=== PATIENT | female | born 1990 | race Caucasian/White ===

== ENCOUNTER 2018-01-23 12:53 | Inpatient (IN) | payer BC ==
[~2018-01-23] VITALS: Ht 172.7 cm; Wt 77.3 kg
[2018-01-23 15:09] LABS: BASO % 0.4 % (0.0-2.0); EOS # 0.1 (0.0-0.7); EOS % 1.5 % (0-4.0); GRAN # 5.5 (1.4-6.5); GRAN % 73.4 % (42.2-75.2); HEMATOCRIT 38.1 % (37.0-47.0); HEMOGLOBIN 12.8 g/dl (12.5-16.0); LYMPH # 1.1 (1.2-3.4); LYMPH % 14.5 % (20.0-51.0); MEAN CELL VOLUME 91 fl (80.0-100.0); MEAN CORPUSCULAR HEMOGLOBIN 31 pg (27.0-31.0); MEAN CORPUSCULAR HGB CONC 34 g/dl (33.0-37.0); MEAN PLATELET VOLUME 10.4 fl (7.4-10.4); MONO # 0.8 (0.1-0.6); MONO % 10.1 % (1.7-9.3); PLATELET COUNT 273 K/mm3 (130-400); RED BLOOD COUNT 4.17 M/mm3 (4.10-5.30); REDCELL DISTRIBUTION WIDTH-CV 11.9 % (11.5-14.5)
[2018-01-23 15:25] LABS: ALBUMIN 4.1 gm/dL (3.5-5.0); BILIRUBIN,TOTAL 0.6 mg/dL (0.0-1.0); CALCIUM 9.3 mg/dL (8.4-10.2); CREATININE, serum 0.64 mg/dL (0.52-1.25); POTASSIUM 3.8 mmol/L (3.4-5.0); TOTAL PROTEIN 6.9 gm/dL (6.4-8.2)
[2018-01-23 15:28] LABS: MUCOUS Present /lpf; PH 6 (5-8); SQUAMOUS EPITHELIAL 0-2 /hpf; URINE APPEARANCE Clear; URINE BACTERIA Rare /hpf; URINE BILIRUBIN Negative (NEGATIVE); URINE BLOOD 1+ (NEGATIVE); URINE COLOR Yellow; URINE GLUCOSE Negative (NEGATIVE); URINE KETONE 1+ (NEGATIVE); URINE LEUKOCYTE ESTERASE Negative (NEGATIVE); URINE NITRATE Negative (NEGATIVE); URINE PROTEIN(semi-quant) 1+ (NEGATIVE); URINE RBC 0-2 /hpf; URINE UROBILINOGEN Negative (NEGATIVE); URINE WBC 0-2 /hpf
[2018-01-23 16:06] LABS: ERYTHROCYTE SEDIMENTATION RATE 7 mm/hr (0-20)
[2018-01-23 16:17] LABS: COLLECTION METHOD CLEAN CATCH
[2018-01-23 18:19] LABS: PHOSPHOROUS 3.5 mg/dL (2.5-4.5); URIC ACID 5.8 mg/dL (2.5-6.2)
[2018-01-23 19:15] VITALS: BP 101/60; PULSE 72; TEMP 98
[2018-01-23 23:30] VITALS: BP 107/50; PULSE 72; TEMP 98
[2018-01-23 23:38] LABS: ALBUMIN 2.8 gm/dL (3.5-5.0); BILIRUBIN,TOTAL 0.2 mg/dL (0.0-1.0); CALCIUM 7.8 mg/dL (8.4-10.2); CREATININE, serum 0.53 mg/dL (0.52-1.25); POTASSIUM 3.5 mmol/L (3.4-5.0); TOTAL PROTEIN 5.1 gm/dL (6.4-8.2); URIC ACID 4.6 mg/dL (2.5-6.2)
[2018-01-24 02:52] VITALS: BP 110/49; PULSE 68; TEMP 97.5
[2018-01-24 06:55] VITALS: BP 106/49; PULSE 71; TEMP 97.5
[2018-01-24 07:27] LABS: COLLECTION METHOD CATHETER
[2018-01-24 07:32] LABS: HEMOGLOBIN 11.8 g/dl (12.5-16.0); MEAN CELL VOLUME 91 fl (80.0-100.0); MEAN CORPUSCULAR HEMOGLOBIN 31 pg (27.0-31.0); MEAN CORPUSCULAR HGB CONC 34 g/dl (33.0-37.0); PLATELET COUNT 197 K/mm3 (130-400); RED BLOOD COUNT 3.78 M/mm3 (4.10-5.30)
[2018-01-24 07:35] LABS: HEMATOCRIT 34.3 % (37.0-47.0); PH 7 (5-8); SQUAMOUS EPITHELIAL None Seen /hpf; URINE APPEARANCE Clear; URINE BACTERIA None Seen /hpf; URINE BILIRUBIN Negative (NEGATIVE); URINE BLOOD Negative (NEGATIVE); URINE COLOR Colorless; URINE GLUCOSE Negative (NEGATIVE); URINE KETONE Negative (NEGATIVE); URINE LEUKOCYTE ESTERASE Negative (NEGATIVE); URINE NITRATE Negative (NEGATIVE); URINE PROTEIN(semi-quant) Negative (NEGATIVE); URINE RBC 0-2 /hpf; URINE UROBILINOGEN Negative (NEGATIVE); URINE WBC 0-2 /hpf
[2018-01-24 07:41] LABS: ALBUMIN 2.8 gm/dL (3.5-5.0); BILIRUBIN,TOTAL 0.3 mg/dL (0.0-1.0); CALCIUM 7.9 mg/dL (8.4-10.2); CREATININE, serum 0.48 mg/dL (0.52-1.25); MAGNESIUM 1.9 mg/dL (1.6-2.3); POTASSIUM 4.2 mmol/L (3.4-5.0); TOTAL PROTEIN 5.2 gm/dL (6.4-8.2); URIC ACID 3.7 mg/dL (2.5-6.2)
[2018-01-24 08:03] LABS: BAND 3 % (0-10); EOSINOPHIL 2 % (0-4); MYELOCYTE 1 % (0-0); PLATELET ESTIMATE NORMAL (NORMAL)
[2018-01-24 08:08] LABS: LYMPHOCYTE 24 % (20.0-51.0); NEUTROPHILS 63 % (42.0-75.2)
[2018-01-24 08:09] LABS: BASOPHIL 2 % (0-2); METAMYELOCYTE 1 % (0-0)
[2018-01-24 10:53] VITALS: BP 111/60; PULSE 64; TEMP 97.9
[2018-01-24 16:25] VITALS: BP 103/54; PULSE 73; TEMP 98.1
[2018-01-24 20:15] VITALS: BP 109/49; PULSE 78; TEMP 98.4
[2018-01-25 00:10] VITALS: BP 96/50; PULSE 70; TEMP 98.6
[2018-01-25 03:46] VITALS: BP 100/51; PULSE 69; TEMP 98
[2018-01-25 07:30] LABS: BILIRUBIN,TOTAL 0.3 mg/dL (0.0-1.0); CALCIUM 8.3 mg/dL (8.4-10.2); CREATININE, serum 0.52 mg/dL (0.52-1.25); MAGNESIUM 1.7 mg/dL (1.6-2.3); TOTAL PROTEIN 5.4 gm/dL (6.4-8.2)
[2018-01-25 09:00] VITALS: BP 129/62; PULSE 83; TEMP 98.3
[2018-01-25 11:00] VITALS: BP 109/60; PULSE 82
[2018-01-25 15:00] VITALS: BP 107/55; PULSE 71; TEMP 98.6
[2018-01-25 20:00] VITALS: BP 123/73; PULSE 73; TEMP 98.5
[2018-01-26] VITALS: BP 105/39; PULSE 70; TEMP 98.1
[2018-01-26 04:00] VITALS: BP 97/39; PULSE 67; TEMP 98.2
[2018-01-26 06:34] LABS: BASO % 0.2 % (0.0-2.0); EOS # 0.2 (0.0-0.7); EOS % 3.4 % (0-4.0); GRAN # 3.7 (1.4-6.5); GRAN % 66.5 % (42.2-75.2); HEMOGLOBIN 11.1 g/dl (12.5-16.0); LYMPH # 1.3 (1.2-3.4); MEAN CELL VOLUME 93 fl (80.0-100.0); MEAN CORPUSCULAR HEMOGLOBIN 31 pg (27.0-31.0); MEAN CORPUSCULAR HGB CONC 34 g/dl (33.0-37.0); MEAN PLATELET VOLUME 10.5 fl (7.4-10.4); MONO # 0.3 (0.1-0.6); MONO % 5.5 % (1.7-9.3); PLATELET COUNT 198 K/mm3 (130-400); RED BLOOD COUNT 3.53 M/mm3 (4.10-5.30); REDCELL DISTRIBUTION WIDTH-CV 11.9 % (11.5-14.5)
[2018-01-26 06:35] LABS: HEMATOCRIT 32.8 % (37.0-47.0)
[2018-01-26 06:50] LABS: BILIRUBIN,TOTAL 0.2 mg/dL (0.0-1.0); CALCIUM 8.3 mg/dL (8.4-10.2); CREATININE, serum 0.53 mg/dL (0.52-1.25); POTASSIUM 3.9 mmol/L (3.4-5.0); TOTAL PROTEIN 5.5 gm/dL (6.4-8.2)
[2018-01-26 07:40] VITALS: BP 98/50; PULSE 70; TEMP 98.1
== END 2018-01-26 09:50 | disposition home or self-care (01) | DRG 557 ==
LOC: COL.ER 12:53 → OB 17:15
PROVIDERS: Internal Medicine; Nurse Practitioner Primary Care; Physician Assistant
DX: M62.82 Rhabdomyolysis (principal); K72.00 Acute and subacute hepatic failure without coma; M79.89 Other specified soft tissue disorders
CPT/HCPCS: 99223-AI; 99231-AI; 99233-AI; 99239; J1644; J1650; J3475; J7030